=== PATIENT | male | born 1990 | race African-American/Black ===

== ENCOUNTER 2018-10-08 11:17 | Inpatient (IN) | payer OTHER ==
[2018-10-08 11:38] VITALS: BMI 24.0
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
[2018-10-08] MEDS ORDERED: MAGNESIUM CITRATE 300 ML BOTTLE PO PRN (12:58)
[2018-10-08] MEDS ORDERED: ACETAMINOPHEN 325 MG TABLET (FP) PO PRN ×2 (12:58)
[2018-10-08] MEDS ORDERED: hydrOXYzine PAMOATE 25 MG CAPSULE (FP) PO PRN (12:58)
[2018-10-08] MEDS ORDERED: IBUPROFEN 400 MG TABLET (FP) PO PRN (12:58)
[2018-10-08] MEDS ORDERED: MENTHOL/PHENOL 1 EACH UD MM PRN (12:58)
[2018-10-08] MEDS ORDERED: BISMUTH SUBSALICYLATE 262 MG/15 ML BTL PO PRN (12:58)
[2018-10-08] MEDS ORDERED: chlordiazePOXIDE HCL 10 MG CAPSULE PO PRN (12:58)
[2018-10-08] MEDS ORDERED: METHOCARBAMOL 500 MG TABLET PO PRN (12:58)
[2018-10-08] MEDS ORDERED: MAG HYDROX/AL HYDROX/SIMETH 30 ML UNIT-DOSE CUP PO PRN (12:58)
[2018-10-08] MEDS ORDERED: MAGNESIUM HYDROX 2400MG/30ML ORAL SUSPENSION 30 ML CUP PO PRN (12:58)
[2018-10-08] MEDS ORDERED: NAPROXEN 500 MG TABLET (FP) PO PRN (13:02)
[2018-10-08 15:09] LABS: HEMATOCRIT 43.5 % (35.4-49); HEMOGLOBIN 14.9 GM/dL (11.7-16.9); MCH 28.7 pg (25.7-33.7); MCHC 34.3 g/dl (32.0-35.9); MEAN CELL VOLUME 83.8 fl (80-96); MEAN PLT VOLUME 8.2 fl (7.5-11.1); PLATELET COUNT 256 K/MM3 (134-434); RBC 5.18 M/mm3 (4.00-5.60); RDW 13.1 % (11.9-15.9); WHITE BLOOD COUNT 8.5 K/mm3 (4.0-10.0)
[2018-10-08 15:16] LABS: ALBUMIN 4.2 g/dl (3.4-5.0); BILIRUBIN,TOTAL 0.9 mg/dL (0.2-1); CALCIUM 9.3 mg/dL (8.5-10.1); CREATININE 1.1 mg/dL (0.55-1.3); TOT PROT 7.2 g/dl (6.4-8.2)
[2018-10-08] MEDS: MELATONIN 5 MG TABLETS PO PRN (22:00)
[2018-10-08] MEDS: THIAMINE HCL 100 MG TABLET (FP) PO SCH (22:01)
[2018-10-08] MEDS: chlordiazePOXIDE HCL 25 MG CAPSULE PO SCH (22:01)
[2018-10-09] MEDS: chlordiazePOXIDE HCL 25 MG CAPSULE PO SCH ×2 (05:37→14:00)
[2018-10-09] MEDS ORDERED: PRENATAL VITAMINS W/ FOLIC ACID TABLET (FP) PO SCH (10:00)
--- NOTE | 2018-10-09 14:47 | PN ---
S CIWA - CIWA Score Nausea/Vomitin-Mild Nausea/No Vomiting Muscle Tremors: 1-None Visible, but [place] Anxiety: 1-Mildly Anxious Agitation: 1-Slight > Activity Paroxysmal Sweats: No Perspiration Orientation: 0-Oriented Tacttile Disturbances: 0-None Auditory Disturbances: 0-None Visual Disturbances: 0-None Headache: 1-Very Mild CIWA-Ar Total Score: 5 [facility] Progress Note (SOAP) Subjective: pt states he is fine with the alcohol detox protocol, no complaints O: Vital Signs - 24 hr 10/08/18 10/08/18 10/08/18 15:25 17:07 21:50 Temperature 98.2 F 98.2 F 98.2 F Pulse Rate 58 L 79 74 Respiratory 18 18 18 Rate Blood Pressure 127/82 129/81 125/84 10/09/18 10/09/18 10/09/18 00:30 03:30 07:06 Temperature 97.7 F Pulse Rate 55 L Respiratory 18 18 16 Rate Blood Pressure 100/63 10/09/18 10/09/18 09:12 13:36 Temperature 98.4 F 98.4 F Pulse Rate 76 76 Respiratory 18 18 Rate Blood Pressure 120/84 120/84 Laboratory Tests 10/08/18 10/08/18 10/08/18 13:00 13:00 13:00 WBC 8.5 RBC 5.18 Hgb 14.9 Hct 43.5 MCV 83.8 MCH 28.7 MCHC 34.3 RDW 13.1 Plt Count 256 MPV 8.2 Sodium 139 Potassium 4.0 Chloride 104 Carbon Dioxide 28 Anion Gap 7 L BUN 10 Creatinine 1.1 Est GFR (CKD-EPI)AfAm 106.81 Est GFR (CKD-EPI)NonAf 92.16 Random Glucose 77 Calcium 9.3 Total Bilirubin 0.9 AST 13 L ALT 17 Alkaline Phosphatase 61 Total Protein 7.2 Albumin 4.2 RPR Titer HIV 1&2 Antibody Screen Negative HIV P24 Antigen Negative 10/08/18 13:00 WBC RBC Hgb Hct MCV MCH MCHC RDW Plt Count MPV Sodium Potassium Chloride Carbon Dioxide Anion Gap BUN Creatinine Est GFR (CKD-EPI)AfAm Est GFR (CKD-EPI)NonAf Random Glucose Calcium Total Bilirubin AST ALT Alkaline Phosphatase Total Protein Albumin RPR Titer Nonreactive HIV 1&2 Antibody Screen HIV P24 Antigen a/p: continue alcohol detox protocol: 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
[2018-10-09] MEDS: chlordiazePOXIDE 5 MG CAPSULE PO SCH (21:33)
[2018-10-09] MEDS: THIAMINE HCL 100 MG TABLET (FP) PO SCH (21:33)
[2018-10-09] MEDS: MELATONIN 5 MG TABLETS PO PRN (21:34)
[2018-10-10] MEDS: chlordiazePOXIDE 5 MG CAPSULE PO SCH (05:39)
[2018-10-10 09:25] VITALS: BP 149/86; PULSE 99; TEMP 97.4
--- NOTE | 2018-10-10 10:42 | PN ---
S CIWA - CIWA Score Nausea/Vomitin-No Nausea/No Vomiting Muscle Tremors: 2 Anxiety: 2 Agitation: 1-Slight > Activity Paroxysmal Sweats: 4-Forehead w/Sweat Beads Orientation: 0-Oriented Tacttile Disturbances: 0-None Auditory Disturbances: 0-None Visual Disturbances: 0-None Headache: 2-Mild CIWA-Ar Total Score: 11 [facility] Progress Note (SOAP) Subjective: c/o sweats, anxiety, headache and tremor. Objective: 10/10/18 10:40 Vital Signs 10/10/18 10/10/18 10/10/18 03:30 06:00 09:24 Temperature 97.7 F 97.4 F L Pulse Rate 76 99 H Respiratory 18 16 18 Rate Blood Pressure 100/74 149/86 Lab Results WBC 8.5 K/mm3 (4.0-10.0) 10/08/18 13:00 RBC 5.18 M/mm3 (4.00-5.60) 10/08/18 13:00 Hgb 14.9 GM/dL (11.7-16.9) 10/08/18 13:00 Hct 43.5 % (35.4-49) 10/08/18 13:00 MCV 83.8 fl (80-96) 10/08/18 13:00 MCHC 34.3 g/dl (32.0-35.9) 10/08/18 13:00 RDW 13.1 % (11.9-15.9) 10/08/18 13:00 Plt Count 256 K/MM3 (134-434) 10/08/18 13:00 Sodium 139 mmol/L (136-145) 10/08/18 13:00 Potassium 4.0 mmol/L (3.5-5.1) 10/08/18 13:00 Chloride 104 mmol/L (98-107) 10/08/18 13:00 Carbon Dioxide 28 mmol/L (21-32) 10/08/18 13:00 Anion Gap 7 MMOL/L (8-16) L 10/08/18 13:00 BUN 10 mg/dL (7-18) 10/08/18 13:00 Creatinine 1.1 mg/dL (0.55-1.3) 10/08/18 13:00 Random Glucose 77 mg/dL (74-106) 10/08/18 13:00 Calcium 9.3 mg/dL (8.5-10.1) 10/08/18 13:00 Labs noted. Assessment: 10/10/18 10:41 AOX3, no acute distress noted full rom, ambulating in the unit. withdrawal symptoms persists. Plan: continue detox. increase fluids.
[2018-10-10] MEDS ORDERED: chlordiazePOXIDE HCL 10 MG CAPSULE PO PRN (21:00)
[2018-10-10] MEDS ORDERED: chlordiazePOXIDE HCL 10 MG CAPSULE PO SCH (21:00)
== END 2018-10-10 09:58 | disposition home or self-care (01) | DRG 775 ==
LOC: YASAS 11:17 → Y6N 13:47
PROVIDERS: ADMIT Surgery; ATTEND Surgery
PROC: HZ2ZZZZ Detoxification Services for Substance Abuse Treatment (ICD-10-PCS; principal; 2018-10-08)
DX: F10.230 Alcohol dependence with withdrawal, uncomplicated (principal); F12.20 Cannabis dependence, uncomplicated; F17.210 Nicotine dependence, cigarettes, uncomplicated; M54.2 Cervicalgia; M54.5 Low back pain; V89.2XXA Person injured in unspecified motor-vehicle accident, traffic, initial encounter; Y92.488 Other paved roadways as the place of occurrence of the external cause; Y93.89 Activity, other specified; Y99.8 Other external cause status
CPT/HCPCS: 36415; 80053; 85027; 86593; 87389